=== PATIENT | male | born 1950 | race Caucasian/White ===

== ENCOUNTER 2021-12-19 10:08 | Emergency (ER) | payer MEDICARE, SELFPAY ==
--- NOTE | ~2021-12-19 | CT_ITS ---
EXAMINATION: CT cervical spine wo con DATE: 12/19/2021 11:05 INDICATION: Head injury TECHNIQUE: Computed tomography (CT) of the cervical spine was performed without intravenous contrast. The dose-length product (DLP) was 505.50 mGy-cm. Automated exposure control and iterative reconstruc tion technique were employed. COMPARISON: None FINDINGS: There is no fracture. There are 2 mm of anterolisthesis of C3 on C4 and C4 on C5. There is severe loss of intervertebral disc space height at C6-7 and moderate loss of disc space height at C3- 4 through C5-6. There is severe central canal stenosis at C5-6 and C6-7. There is severe multilevel f acet and uncovertebral joint osteoarthritis. IMPRESSION: 1. Severe cervical spondylosis without acute findings. Reviewed, dictated and finalized at location A.
--- NOTE | ~2021-12-19 | CT_ITS ---
EXAMINATION: CT brain wo con INDICATION: Head injury COMPARISON: None TECHNIQUE: Standard unenhanced head CT. The dose-length product (DLP) was 681.00 mGy-cm. The mA was a djusted according to patient size. Iterative reconstruction technique was employed. FINDINGS: There is a left parietal scalp hematoma and laceration. There is no acute intraparenchymal hemorrhage. No evidence of mass lesion. No evidence of acute infarction. There is mild periventricula r and subcortical hypodensity probably related to small vessel ischemic disease. There is moderate pr ominence of the sulci and ventricles related to cerebral atrophy. Intracranial calcified cerebral ath erosclerosis is noted. There are no extra-axial collections. There is no mass effect or midline shift . Changes in the globes are likely from ocular lens surgery. The visualized sinuses and mastoid air c ells are well aerated. IMPRESSION: 1. No acute intracranial abnormality. 2. Age related findings. Reviewed, dictated and finalized at location A.
[2021-12-19 10:16] VITALS: BP 109/97; PULSE 79; RESP 18; TEMP 36.5; O2SAT 99
--- NOTE | 2021-12-19 10:52 | ED.HEATRA ---
HPI - Head Injury General Chief complaint: Head Injury <Emma Sutherland PA-C - Last Filed: 12/19/21 13:16> Stated complaint: fall/hi/no thinners <Emma Sutherland PA-C - Last Filed: 12/19/21 13:16> Time Seen by Provider: 12/19/21 10:28 <Emma Sutherland PA-C - Last Filed: 12/19/21 13:16> History of Present Illness HPI Narrative: Patient is a 71 year old male who presents for evaluation s/p fall earlier today. Patient states he woke up in his usual state of health with some chronic back pain, for which he took Vicodin. States later in the day he was getting items out of his trunk, and when he stepped back he tripped and fell, striking his head on the pavement. No LOC. He required assistance from his daughter to get up from the ground. Patient is currently complaining of an abrasion to the back of his head and a mild headache, but no diplopia, chest pain, shortness of breath, abdominal pain, confusion, now or at time of fall. Had a stress test in late November due to some chest pain, which was WNL. He denies any chest pain today. Unsure of last tetanus. <Emma Sutherland PA-C - Last Filed: 12/19/21 13:16> Related Data Allergies/Adverse reactions: Allergies Allergy/AdvReac Type Severity Reaction Status Date / Time No Known Allergies Allergy Verified 12/19/21 10:21 <Emma Sutherland PA-C - Last Filed: 12/19/21 13:16> Review of Systems Review of Systems: Gen.: Denies fevers or chills Eyes: Denies eye pain or visual change ENT: Denies congestion Respiratory: Denies shortness of breath or cough CV: Denies chest pain or palpitations GI: Denies abdominal pain nausea, emesis or diarrhea denies burning, urgency, frequency or hematuria Musculoskeletal: Denies back pain or muscle pain Neuro: Denies numbness, tingling, weakness or focal weakness Skin: Reports abrasion to scalp. denies rash Except as documented, all other systems reviewed and negative <Emma Sutherland PA-C - Last Filed: 12/19/21 13:16> All systems reviewed & are unremarkable except as noted in HPI and below <Emma Sutherland PA-C - Last Filed: 12/19/21 13:16> [facility] Family History Family History: Family History (Updated 07/20/17 @ 08:15 by DOCTOR UNKNOWN) Father Diabetes mellitus Family history of malignant neoplasm of thyroid <Emma Sutherland PA-C - Last Filed: 12/19/21 13:16> Social History Social History: Social History Smoking status: Never smoker Alcohol intake: current <DELIA Matthews Last Filed: 12/19/21 13:16> Exam Const: General: no acute distress and alert; No confusion <Emma Sutherland PA-C - Last Filed: 12/19/21 13:16> Orientation/consciousness: patient oriented x3 <DELIA Matthews Last Filed: 12/19/21 13:16> Limitations: No altered mental status <Emma Sutherland PA-C - Last Filed: 12/19/21 13:16> HENMT: Mouth: Yes moist mucous membranes <DELIA Matthews Last Filed: 12/19/21 13:16> Throat: posterior oropharynx normal <DELIA Matthews Last Filed: 12/19/21 13:16> Other: Patient has area of healing ecchymosis under bilateral eyes. Small abrasion noted to posterior scalp with no active bleeding. No hemotympanum <Emma Sutherland PA-C - Last Filed: 12/19/21 13:16> Eyes: Conjunctivae: conjunctivae normal <DELIA Matthews Last Filed: 12/19/21 13:16> Pupils: Equal, round and reactive pupils present <DELIA Matthews Last Filed: 12/19/21 13:16> EOM: EOMs intact bilaterally <DELIA Matthews Last Filed: 12/19/21 13:16> Direct Ophthalmoscopy: no photophobia <DELIA Matthews Filed: 12/19/21 13:16> Neck: Neck: normal visual inspection <DELIA Matthews Filed: 12/19/21 13:16> Chest: Chest palpation & inspection: normal inspection of the chest and no tenderness <DELIA Matthews
[2021-12-19] MEDS: TETANUS,DIPHTHERIA,AC PERTUSSIS ADULT (0.5 ML) BOOSTRIX IM (11:34)
== END 2021-12-19 12:09 | disposition home or self-care (01) ==
PROVIDERS: Emergency Provider Emergency Medicine; PCP Family Medicine Adolescent Medicine
DX: S00.01XA Abrasion of scalp, initial encounter (principal); Z23 Encounter for immunization; M47.812 Spondylosis without myelopathy or radiculopathy, cervical region; W01.0XXA Fall on same level from slipping, tripping and stumbling without subsequent striking against object, initial encounter
CPT/HCPCS: 70450; 72125; 90471; 90715; 99284

== ENCOUNTER 2022-02-09 08:19 | Outpatient (CLI) | payer MEDICARE, SELFPAY ==
--- NOTE | ~2022-02-09 | CT_ITS ---
EXAMINATION:CT diagnostic chest wo con DATE: 02/09/2022 09:01 INDICATION: Solitary pulmonary nodule. TECHNIQUE: Computed tomography (CT) of the chest was performed without intravenous contrast. Automate d exposure control and iterative reconstruction technique were employed. The dose-length product (DLP ) was 371.82 mGy-cm. COMPARISON: CT abdomen and pelvis 04/06/2017 FINDINGS: The lungs demonstrate mild atelectasis. A calcified left lung nodule and calcified left hil ar lymph nodes are consistent with old granulomatous disease. No pleural effusion. The heart size is normal. There are coronary artery calcifications. No pericardial effusion. The central pulmonary nola rosa are enlarged, consistent with pulmonary arterial hypertension. Calcifications in the spleen are consistent with old granulomatous disease. There is severe thoracic spondylosis. IMPRESSION: 1. No evidence of malignancy. Reviewed, dictated and finalized at location A.
== END 2022-02-09 08:20 | disposition home or self-care (01) ==
PROVIDERS: PCP Family Medicine Adolescent Medicine; Visit Provider Family Medicine Adolescent Medicine
DX: R91.1 Solitary pulmonary nodule (principal)
CPT/HCPCS: 71250

== ENCOUNTER 2023-04-13 02:54 | Day surgery (SDC) | payer MEDICARE, SELFPAY ==
[2023-03-14 13:51] VITALS: BMI 40.9
--- NOTE | 2023-04-12 13:38 | WPDANESEPPF ---
Anes - Initial Pre Proc Eval Procedure: Operation Date: 04/13/23 13:00 Proposed Procedures p Screening Colonoscopy - Patricio Lambert MD Date/Time: 04/12/23 13:38 Surgeon: Patricio Lambert MD Pre Op Diagnosis: neoplasm screening Patient Data Age: 73 Gender: M Height: 1.78 m Weight: 129.5 kg Allergies Allergy/AdvReac Type Severity Reaction Status Date / Time No Known Allergies Allergy Verified 04/13/23 11:45 Home Medications Medication Instructions Recorded Confirmed Type antiarthritic combination no.2 900 900 mg PO DAILY 12/31/21 04/13/23 History mg tablet (glucosamine-chondroitin) cholecalciferol (vitamin D3) 125 125 mcg PO DAILY 12/31/21 04/13/23 History mcg (5,000 unit) tablet omeprazole 20 mg capsule,delayed 20 mg PO DAILY 12/31/21 04/13/23 History release oxycodone-acetaminophen 10 mg-325 1 - 2 tablet PO Q6H PRN Pain 12/31/21 04/13/23 History mg tablet (Percocet) testosterone cypionate 200 mg/mL 200 mg IM .every 3 weeks #10 mL 03/11/22 04/13/23 Rx intramuscular oil amlodipine 5 mg tablet 5 mg PO DAILY #90 tabs 03/04/23 04/13/23 Rx furosemide 40 mg tablet 40 mg PO QAM 03/04/23 04/13/23 History hydrocodone 5 mg-acetaminophen 325 1 tablet PO Q6H PRN Pain 03/04/23 04/13/23 History mg tablet losartan 100 mg tablet 100 mg PO DAILY #90 tabs 03/04/23 04/13/23 Rx oxybutynin chloride 10 mg 10 mg PO DAILY #90 tabs 03/04/23 04/13/23 Rx tablet,extended release 24 hr diclofenac sodium 75 mg 75 mg PO BID 03/14/23 04/13/23 History tablet,delayed release gabapentin 600 mg tablet 600 mg PO TID 03/14/23 04/13/23 History magnesium 1 cap PO DAILY 03/14/23 04/13/23 History tamsulosin 0.4 mg capsule 0.8 mg PO HS 03/14/23 04/13/23 History trazodone 150 mg tablet 300 mg PO HS 03/14/23 04/13/23 History amoxicillin 875 mg-potassium 1 tablet PO BID #20 tabs 04/08/23 04/13/23 Rx clavulanate 125 mg tablet Patient hx anesthesia problems: none Family hx anesthesia problems: none Results Review: All pre-operative results and documents have been reviewed as part of the pre-operative evaluation. [facility] Surgical History Surgical History History of appendectomy 06/2017 History of back surgery History of bilateral inguinal hernia repair History of bilateral knee arthroplasty 2004 History of total left hip replacement 08/2018 History of umbilical hernia repair Family History Family History Father Family history of malignant neoplasm of thyroid Asthma Hypertension Mother Breast cancer Hypertension Social History Social History Smoking status: Never smoker Second hand tobacco smoke exposure: No Alcohol intake: current Substance use: never Substance use type: does not use Living arrangements: with family Occupation/Education: retired Gender identity (if verbalized by the patient): Male Sexual Orientation (if Verbalized by the Patient): Straight or Heterosexual Spiritual care concerns: No Agree to blood products: Yes Anes - Eval Final PreProcedure Day of Procedure 04/12/23 13:38 Patient weight: morbidly obese Heart: irregular rhythm Lungs: clear to auscultation Airway: Mallampati scale class II Neurological: alert and oriented Last oral intake: >/= 8 hours ASA classification: III Emergent: no Anesthetic plan: proceed Anesthesia type and monitoring: general GIVS and standard monitoring Results Review: All pre-operative results and documents have been reviewed as part of the pre-operative evaluation. Informed Consent: The patient's anesthetic plan and its attendant risks and benefits were discussed with the patient/family/POA. Questions were solicited and answers provided to the satisfaction of the patient/family/POA.
--- NOTE | 2023-04-12 20:36 | PM.HPGS ---
History of Present Illness History of Present Illness Consent: Risks, benefits, and alternatives have been discussed and questions answered. Patient agrees to proceed with procedure. Chief complaint: neoplasm screening Narrative: Jeremie Delaney is a 73 year old male referred for colon cancer screening. Review of Systems Review of Systems: All systems reviewed & are unremarkable except as noted in HPI and below PMFSH Surgical History Surgical History History of appendectomy 06/2017 History of back surgery History of bilateral inguinal hernia repair History of bilateral knee arthroplasty 2004 History of total left hip replacement 08/2018 History of umbilical hernia repair Family History Family History Father Family history of malignant neoplasm of thyroid Asthma Hypertension Mother Breast cancer Hypertension Social History Social History Smoking status: Never smoker Second hand tobacco smoke exposure: No Alcohol intake: current Substance use: never Substance use type: does not use Living arrangements: with family Occupation/Education: retired Gender identity (if verbalized by the patient): Male Sexual Orientation (if Verbalized by the Patient): Straight or Heterosexual Spiritual care concerns: No Agree to blood products: Yes Meds Home Medications and Allergies Home Medications Medication Instructions Recorded Confirmed Type antiarthritic combination no.2 900 900 mg PO DAILY 12/31/21 04/13/23 History mg tablet (glucosamine-chondroitin) cholecalciferol (vitamin D3) 125 125 mcg PO DAILY 12/31/21 04/13/23 History mcg (5,000 unit) tablet omeprazole 20 mg capsule,delayed 20 mg PO DAILY 12/31/21 04/13/23 History release oxycodone-acetaminophen 10 mg-325 1 - 2 tablet PO Q6H PRN Pain 12/31/21 04/13/23 History mg tablet (Percocet) testosterone cypionate 200 mg/mL 200 mg IM .every 3 weeks #10 mL 03/11/22 04/13/23 Rx intramuscular oil amlodipine 5 mg tablet 5 mg PO DAILY #90 tabs 03/04/23 04/13/23 Rx furosemide 40 mg tablet 40 mg PO QAM 03/04/23 04/13/23 History hydrocodone 5 mg-acetaminophen 325 1 tablet PO Q6H PRN Pain 03/04/23 04/13/23 History mg tablet losartan 100 mg tablet 100 mg PO DAILY #90 tabs 03/04/23 04/13/23 Rx oxybutynin chloride 10 mg 10 mg PO DAILY #90 tabs 03/04/23 04/13/23 Rx tablet,extended release 24 hr diclofenac sodium 75 mg 75 mg PO BID 03/14/23 04/13/23 History tablet,delayed release gabapentin 600 mg tablet 600 mg PO TID 03/14/23 04/13/23 History magnesium 1 cap PO DAILY 03/14/23 04/13/23 History tamsulosin 0.4 mg capsule 0.8 mg PO HS 03/14/23 04/13/23 History trazodone 150 mg tablet 300 mg PO HS 03/14/23 04/13/23 History amoxicillin 875 mg-potassium 1 tablet PO BID #20 tabs 04/08/23 04/13/23 Rx clavulanate 125 mg tablet Allergies Allergy/AdvReac Type Severity Reaction Status Date / Time No Known Allergies Allergy Verified 04/13/23 11:45 Exam Resp: Auscultation: clear to auscultation bilaterally Cardio: Rate: regular rate Rhythm: regular rhythm GI: GI Palp: Yes Soft to palpation and No Tenderness to palpation present (GI) Assessment and Plan Assessment and plan (1) Colon cancer screening: Code(s): Z12.11 - Encounter for screening for malignant neoplasm of colon Status: Acute Assessment and Plan: Colonoscopy with possible biopsy or polypectomy or cautery or injection of substances.
[2023-04-13 11:48] VITALS: BP 158/84; PULSE 82; RESP 18; TEMP 36.2; O2SAT 96; BMI 41.3
[2023-04-13] MEDS: LACTATED RINGERS 1,000 ML 150 ML IV CONT (12:03)
[2023-04-13 13:24] VITALS: BP 130/88; PULSE 68; RESP 18; O2SAT 95
[2023-04-13 13:34] VITALS: BP 141/98; PULSE 66; RESP 18; O2SAT 96
[2023-04-13 13:44] VITALS: BP 142/89; PULSE 68; RESP 18; O2SAT 97
== END 2023-04-13 13:59 | disposition home or self-care (01) ==
PROVIDERS: PCP Family Medicine Adolescent Medicine; Visit Provider Internal Medicine Gastroenterology
PROC: 0DJD8ZZ Inspection of Lower Intestinal Tract, Via Natural or Artificial Opening Endoscopic (ICD-10-PCS; CPT 45378; principal; 2023-04-13 13:00)
DX: Z12.11 Encounter for screening for malignant neoplasm of colon (principal); K57.30 Diverticulosis of large intestine without perforation or abscess without bleeding; E66.01 Morbid (severe) obesity due to excess calories; Z68.41 Body mass index [BMI] 40.0-44.9, adult
CPT/HCPCS: G0121; J2704; J7120

== ENCOUNTER 2024-01-10 18:36 | Inpatient (IN) | payer MEDICARE, SELFPAY ==
--- NOTE | ~2024-01-10 | US_ITS ---
EXAMINATION:US venous doppler LE BI INDICATION:Edema. Hypoxia. TECHNIQUE: Multiple grayscale, color flow and Doppler images of the right and left lower extremity de ep venous systems were obtained and reviewed. COMPARISON: No prior studies for comparison. FINDINGS: The common femoral, superficial femoral and popliteal veins demonstrate normal respiratory variation, augmentation and compressibility. Color flow is also seen within the posterior tibial, pe roneal, greater saphenous and profunda veins. IMPRESSION: 1: No lower extremity deep venous thrombosis. Reviewed, dictated and finalized at location B.
--- NOTE | ~2024-01-10 | XR_ITS ---
EXAM: XR knee LT 3V DATE: 01/10/2024 21:13 HISTORY: fall, pain . COMPARISON: None available. FINDINGS: Decreased mineralization. No fracture or dislocation. Uncomplicated appearing left knee ar throplasty hardware. No lytic or blastic lesion. Patellar and quadriceps enthesopathy. No erosion or periosteal change. Moderate volume joint fluid. IMPRESSION: No acute osseous finding in the left knee. No radiographic evidence of hardware related c omplication. Moderate joint effusion. Reviewed, dictated and finalized at location K. IMPRESSION: No acute osseous finding in the left knee. No radiographic evidence of hardware related complication. Moderate joint effusion.
--- NOTE | ~2024-01-10 | XR_ITS ---
EXAMINATION: XR chest 1V Exam Date/Time: 01/10/2024 21:00 CDT HISTORY: sob Comparison: 06/05/2019. RESULT: Lines, tubes, and devices: Shunt tubing traverses the right chest. Lungs and pleura: Low volumes with crowding. Azygos fissure. Linear bilateral scar/atelectasis in th e mid and lower lungs. Patchy subsegmental bilateral medial basilar airspace disease. Cardiomediastinal silhouette: Stable. Other: No acute osseous or upper abdominal finding. IMPRESSION: Low volumes with crowding. Subsegmental bibasilar medial atelectasis/consolidation. Bilateral lower l sisi atelectasis/scar. Reviewed, dictated and finalized at location K. IMPRESSION: Low volumes with crowding. Subsegmental bibasilar medial atelectasis/consolidat ion. Bilateral lower lung atelectasis/scar.
--- NOTE | ~2024-01-10 | XR_ITS ---
EXAM: XR foot LT 2V DATE: 01/10/2024 23:44 HISTORY: fall pain base of toes unable to bend knee . COMPARISON: None available. FINDINGS: Decreased mineralization. Avulsion fracture fragment off the dorsal aspect of the talus. N ondisplaced transverse fracture of the proximal aspect of the fifth proximal phalange. Transverse fra cture of the fifth metatarsal head with medial angulation. No lytic or blastic lesion. Scattered dege nerative changes, moderate at the midfoot where erosive changes are present. Plantar enthesopathy and calcification of the plantar fascia. No erosion or periosteal change. Vascular calcifications. Foref oot soft tissue swelling. IMPRESSION: Anterior ankle capsule avulsion fracture. Nondisplaced fracture of the proximal aspect of the left fifth proximal phalange. Left fifth metatarsal head fracture with medial angulation. Reviewed, dictated and finalized at location K.
--- NOTE | ~2024-01-10 | XR_ITS ---
Portable chest x-ray Comparison: 01/10/2024 Clinical History: Pneumonia Findings: There is a probable linear bibasilar scarring are present, with suspected underlying COPD. No acute consolidation or pleural effusion. MILK [employer]NER shunt present. Cardiomediastinal silhouette is stabl e. Bones and soft tissues are unremarkable. Impression: No definite acute pulmonary abnormality. Stable bibasilar scarring and probable underlying COPD. MILK [employer]NER shunt. Reviewed, dictated and finalized at location . Impression: No definite acute pulmonary abnormality. Stable bibasilar scarring and probable underlying COPD. MIL[employer]NER shunt.
[2024-01-10 18:40] VITALS: BP 134/116; PULSE 117; RESP 22; O2SAT 88
[2024-01-10 18:49] VITALS: O2SAT 93
[2024-01-10 19:07] VITALS: BP 162/93; PULSE 102; RESP 25; O2SAT 95
--- NOTE | 2024-01-10 19:17 | PC.NURSE ---
care and report given to ZAIRA Trinh. all questions answered.
[2024-01-10 20:55] VITALS: BP 167/84; PULSE 93; RESP 14; O2SAT 95
[2024-01-10 22:24] VITALS: BP 155/72; PULSE 98; RESP 20; O2SAT 95
[2024-01-10 23:20] VITALS: BP 157/99; PULSE 95; RESP 19; O2SAT 93
[2024-01-10 23:21] LABS: Basophils Percent Auto 0.3 % (0.2-1.2); Eosinophils Absolute Auto 0.2 K/mm3 (0-0.3); Eosinophils Percent Auto 1.5 % (0-4.4); Hematocrit 40.3 % (42.0-52.0); Hemoglobin 12.9 g/dL (14.0-18.0); Immature Granulocyte Absolute 0.04 K/mm3 (0.00-0.031); Immature Granulocyte Percent A 0.3 % (0-0.5); Lymphocytes Absolute Auto 2.24 K/mm3 (0.9-3.2); Lymphocytes Percent Auto 18.6 % (18.3-44.2); Mean Corpuscular Hemoglobin 31.5 pg (26-34); Mean Corpuscular Volume 98.5 fl (80-100); Mean Platelet Volume 8.9 fl (7.4-10.4); Monocytes Absolute Auto 0.8 K/mm3 (0.1-0.6); Monocytes Percent Auto 6.5 % (2.6-8.5); Neutrophils Absolute Auto 8.8 K/mm3 (1.3-6.7); Neutrophils Percent Auto 72.8 % (45.5-73.1); Platelet Count Result 229 k/mm3 (150-375); Red Blood Count 4.09 M/mm3 (4.6-6.20); Red Cell Distribution Width 16.9 % (11.5-14.5)
[2024-01-10] MEDS: AZITHROMYCIN 500 MG/NS 250 ML 500 MG/250 ML BAG 250 MG IVPB (23:24)
[2024-01-10 23:30] LABS: Lactic Acid Reflex 1.6 mmol/L (0.7-2.0)
[2024-01-10 23:32] LABS: Alanine Aminotransferase 19 U/L (6-50); Albumin Level 3.5 g/dL (3.5-5.1); Alkaline Phosphatase 89 U/L (38-126); Anion Gap 3 mmol/L (4-12); Aspartate Amino Transferase 22 U/L (17-59); Bilirubin,Total 0.3 mg/dL (0.2-1.3); Blood Urea Nitrogen 23 mg/dL (9-20); Calcium 9.1 mg/dL (8.4-10.2); Carbon Dioxide 31 mmol/L (22-30); Chloride 105 mmol/L (98-107); Estimated CRCL calculation 78 ml/min; Estimated Glomerular Filt Rate > 60; Glucose 128 mg/dL (65-110); Magnesium 2.2 mg/dL (1.6-2.3); Potassium 3.8 mmol/L (3.4-5.0); Sodium 139 mmol/L (137-145)
[2024-01-10] MEDS: KETOROLAC 15 MG/ML VIAL (*BKC) IV PUSH (23:33)
[2024-01-11] VITALS (13 sets, daily range): BP systolic 141–177; BP diastolic 86–105; PULSE 70–94; RESP 12–23; TEMP 36.2–36.6; O2SAT 91–95; BMI 47.5
--- NOTE | 2024-01-11 01:08 | ED.FALL ---
HPI - Fall General Chief Complaint: Fall Stated Complaint: fall Time Seen by Provider: 01/10/24 21:04 History of Present Illness HPI Narrative: Patient is a 73-year-old male who presents to the emergency department this evening after which occurred at a local strong. Patient states that he was trying to get out of a seated position and slid onto the ground. When this happen, patient's left leg slid underneath him and he landed on his left. Patient is now complaining of left knee pain and left foot pain. He denies hitting his head, denies any loss of consciousness and denies any blood thinner use. Patient was brought to our facility via EMS and it was noted that patient's pulse ox was in the mid 80s. Patient denies any home oxygen use. He is currently denies any chest pain or shortness of breath and denies any fevers or chills at home. No other modifying, alleviating, or precipitating factors at this time. Related Data Home Medications Medication Instructions Recorded Confirmed antiarthritic combination no.2 900 900 mg PO DAILY 12/31/21 11/22/23 mg tablet (glucosamine-chondroitin) cholecalciferol (vitamin D3) 125 125 mcg PO DAILY 12/31/21 11/22/23 mcg (5,000 unit) tablet magnesium 1 cap PO DAILY 03/14/23 11/22/23 dexamethasone sodium phos (PF) 4 4 mg IM Q12H PRN adrenal crisis 11/22/23 11/22/23 mg/mL injection solution hydrocortisone 5 mg tablet 5 mg PO .COMPLEX 11/22/23 11/22/23 Allergies Allergy/AdvReac Type Severity Reaction Status Date / Time No Known Allergies Allergy Verified 01/10/24 23:24 Review of Systems Review of Systems: All systems are reviewed and are negative unless stated otherwise in the HPI. 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 normal pressure hydrocephalus Family History Family History Father Family history of malignant neoplasm of thyroid Asthma Hypertension Mother Breast cancer Hypertension Social History Social History Smoking status: Never smoker Second hand tobacco smoke exposure: No Alcohol intake: current Substance use: never Substance use type: does not use Living arrangements: with family Occupation/Education: retired Gender identity (if verbalized by the patient): Male Sexual Orientation (if Verbalized by the Patient): Straight or Heterosexual Spiritual care concerns: No Agree to blood products: Yes Exam Narrative: General: Alert, awake, afebrile, in no acute distress, obese. Cardiovascular: Regular rate and rhythm, no murmurs, rubs or gallops, no peripheral edema. Respiratory: Clear to auscultation bilaterally, no tachypnea, no wheezing, no rhonchi, no rubs, no respiratory distress. Abdomen: Soft, nontender, nondistended, no rebound, no guarding, no peritoneal signs. Musculoskeletal: Tenderness to palpation along the medial aspect of the left knee, intact left knee range of motion, no joint effusion noted, tenderness to palpation over the 4th and 5th distal metatarsal/phalanges of the left foot with overlying ecchymosis. Skin: No rashes or petechia, no signs of infection. Psychiatric: Alert and oriented, normal behavior and judgment for situation. Neurological: Alert and oriented to person, place, and time. Follows all commands. No focal deficits, speech is clear and fluent. Course Vital Signs Vital signs: Vital Signs Pulse Rate 117 H 01/10/24 18:40 Respiratory Rate 22 H 01/10/24 18:40 Blood Pressure 134/116 H 01/10/24 18:40 Pulse Oximetry 88 L 01/10/24 18:40 Oxygen Delivery Room Air 12/19
[2024-01-11] MEDS: HYDROcodone/acetaminophen (*CRX) 7.5-325 MG TABLET 1 TAB PO (01:40)
[2024-01-11] MEDS: HYDROmorphone HCL INJ (*CRX) 1 MG/ML SYR IV PUSH ×3 (06:00→21:28)
--- NOTE | 2024-01-11 11:51 | PM.IMHP ---
H&P: HPI History of Present Illness Date/Time: 01/11/24 11:51 Chief Complaint: Fall with left elg pain Narrative: 73yo male with Parkinson, CHF, adrenal insufficiency and HTN here for left ankle and knee pain after a fall. Patient tried to get up into his truck on the skidder driver's side when his left leg slipped out from under him causing a fall. He landed under his left leg. He denies any chest pain, lightheadedness or dizziness prior to the fall. There was no head injury or loss of consciousness. No neck injury. He denies any other joint pain except for left knee and left ankle/foot. He has been feeling well. No fever or chills. No cough. No calf pain. No history of sleep apnea, COPD, emphysema or asthma. He does measure his oxygen level at home and it runs in the low 90s. He has been short of breath with pedal edema over the past 6 months off and on. He has been hospitalized a couple times for CHF. He has been on Lasix anywhere from 40-60 mg daily. His Lasix was increased to 80 mg daily on 01/09/24. He also has been having intermittent back pain with right leg sciatica but this been going on for years. He does see orthopedic doctor, Dr Dickerson, in [place]. Patient takes gabapentin and diclofenac regularly at home for chronic pain. He also has Vicodin that he uses once a week on average as well. Family is concerned that the patient has had confusion after being given morphine and Percocet and request these not be given. EMS evaluated the patient and noted that the patient was hypoxic with SpO2 in the mid 80s. Patient was started on oxygen and brought to the emergency room for evaluation. He does not wear oxygen at home. In the emergency room, he was 88% on room air. Tachycardic 117 with a blood pressure 134/116. Chest x-ray showed low volume with crowding and subsegmental bibasilar medial atelectasis and consolidation as well as bilateral lower lung atelectasis scar. The x-ray showed no acute osseous abnormalities of the left knee. No radiographic evidence of hardware related complications. Does have a moderate joint effusion noted. Left foot x-ray shows anterior ankle capsule avulsion fracture involving the talus, nondisplaced fracture of the proximal aspect left 5th proximal phalanges and left 5th metatarsal head fracture with medial angulation. Blood cultures were collected. White count was 12 K. Hemoglobin was 13 with normal platelet count. Serum bicarb was 31, BUN 23 and glucose 128 otherwise comprehensive metabolic panel essentially normal. Patient was given Rocephin, azithromycin and 1 dose Toradol. He was also given Dilaudid and [place]. He was admitted for further care. Review of Systems Review of Systems: All systems reviewed & are unremarkable except as noted in HPI and below PMFSH Past Medical History Medical History (Updated 01/11/24 @ 12:14 by Chance Contreras MD) Adrenal insufficiency BPH (benign prostatic hyperplasia) CHF (congestive heart failure) HTN (hypertension), benign Parkinsons disease Surgical History Surgical History (Updated 01/11/24 @ 12:09 by Chance Contreras MD) History of appendectomy 06/2017 History of back surgery History of bilateral inguinal hernia repair History of bilateral knee arthroplasty 2004 History of fracture of right ankle surgical repair with hardware. 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 Denies alcohol or drug use. Lives at home with his . He has 2 dogs. Full code. He nominates his to be the individual who would make
[2024-01-11] MEDS: FUROSEMIDE 40 MG TABLET 80 MG PO (15:01)
[2024-01-11] MEDS: CARBIDOPA/LEVODOPA 25/100 MG TABLET 1 TABLET PO ×2 (15:01→17:23)
[2024-01-11] MEDS: GABAPENTIN 300 MG CAPSULE 600 MG PO ×2 (15:02→17:23)
[2024-01-11] MEDS: LOSARTAN POTASSIUM 100 MG TABLET PO (15:02)
[2024-01-11] MEDS: HYDROCORTISONE 5 MG TABLET 15 MG PO (15:10)
[2024-01-11 15:53] LABS: Influenza A QL RT-PCR Negative (Negative); Influenza B QL RT-PCR Negative (Negative); RSV RNA, RT-PCR Negative (Negative); SARS-CoV-2 RNA PCR Negative (Negative)
[2024-01-11] MEDS: DICLOFENAC SOD 75 MG TABLET.EC BY MOUTH (17:23)
[2024-01-11] MEDS: TAMSULOSIN HCL 0.4 MG CAPSULE 0.8 MG PO (21:22)
[2024-01-11] MEDS: HYDROCORTISONE 5 MG TABLET PO (21:22)
[2024-01-11] MEDS: AZITHROMYCIN 250 MG TABLET PO (21:22)
[2024-01-11] MEDS: traZODone HCL 50 MG TABLET 300 MG PO (21:22)
--- NOTE | 2024-01-11 21:56 | PCRCNOTE ---
PT REFUSES TO HAVE APNEA LINK STATES HE DOES NOT NEED OR WANT ONE
[2024-01-12 05:26] VITALS: BP 142/82; PULSE 85; RESP 14; TEMP 36.1; O2SAT 94
[2024-01-12 06:13] LABS: Basophils Percent Auto 0.4 % (0.2-1.2); Eosinophils Absolute Auto 0.2 K/mm3 (0-0.3); Eosinophils Percent Auto 2.2 % (0-4.4); Hematocrit 39.7 % (42.0-52.0); Hemoglobin 12.4 g/dL (14.0-18.0); Immature Granulocyte Absolute 0.05 K/mm3 (0.00-0.031); Immature Granulocyte Percent A 0.5 % (0-0.5); Lymphocytes Absolute Auto 1.93 K/mm3 (0.9-3.2); Lymphocytes Percent Auto 21.2 % (18.3-44.2); Mean Corpuscular HGB Conc 31.2 g/dl (32-36); Mean Corpuscular Hemoglobin 31.3 pg (26-34); Mean Corpuscular Volume 100.3 fl (80-100); Mean Platelet Volume 8.9 fl (7.4-10.4); Monocytes Absolute Auto 0.7 K/mm3 (0.1-0.6); Neutrophils Absolute Auto 6.2 K/mm3 (1.3-6.7); Neutrophils Percent Auto 67.7 % (45.5-73.1); Platelet Count Result 202 k/mm3 (150-375); Red Blood Count 3.96 M/mm3 (4.6-6.20); Red Cell Distribution Width 16.9 % (11.5-14.5); White Blood Count 9.1 K/mm3 (4.5-10.0)
[2024-01-12 06:22] LABS: Anion Gap -1 mmol/L (4-12); Blood Urea Nitrogen 18 mg/dL (9-20); Calcium 9.1 mg/dL (8.4-10.2); Carbon Dioxide 35 mmol/L (22-30); Chloride 101 mmol/L (98-107); Estimated CRCL calculation 87 ml/min; Estimated Glomerular Filt Rate > 60; Glucose 113 mg/dL (65-110); Magnesium 2.1 mg/dL (1.6-2.3); Potassium 4.3 mmol/L (3.4-5.0); Sodium 135 mmol/L (137-145)
[2024-01-12 08:00] VITALS: PULSE 85; RESP 14; O2SAT 94
[2024-01-12] MEDS: FUROSEMIDE 40 MG TABLET 80 MG PO (09:08)
[2024-01-12] MEDS: DICLOFENAC SOD 75 MG TABLET.EC BY MOUTH ×2 (09:08→17:46)
[2024-01-12] MEDS: CARBIDOPA/LEVODOPA 25/100 MG TABLET 1 TABLET PO ×3 (09:08→17:46)
[2024-01-12] MEDS: GABAPENTIN 300 MG CAPSULE 600 MG PO ×3 (09:08→17:46)
[2024-01-12] MEDS: MULTIVITAMINS THERAPEUTIC TAB (*BKC) 1 TABLET PO (09:09)
[2024-01-12] MEDS: CHOLECALCIFEROL 1,000 UNITS TABLET 5000 UNITS PO (09:09)
[2024-01-12] MEDS: HYDROCORTISONE 5 MG TABLET 15 MG PO (09:09)
[2024-01-12] MEDS: LOSARTAN POTASSIUM 100 MG TABLET PO (09:09)
[2024-01-12] MEDS: MAGNESIUM OXIDE 400 MG TABLET PO (09:11)
--- NOTE | 2024-01-12 10:29 | PCPTNOTE ---
Attempted PT evaluation, pt's spouse refused for pt to participate in skilled therapy until orthopedic doctor has seen the pt. Pt and pt's spouse educated on pt having a WBAT order that was written by orthopedic physician, but pt's spouse continued to refuse for the pt. RN aware.
[2024-01-12] MEDS: polyethylene glycoL 3350 17 GM POWD.PACK PO (12:07)
--- NOTE | 2024-01-12 12:47 | PM.CNOR ---
Assessment and Plan Assessment and plan (1) Foot fracture, left: Qualifiers: Encounter type: initial encounter Fracture type: closed Qualified Code(s): S92.902A - Unspecified fracture of left foot, initial encounter for closed fracture <MARLEN BrantleyP - Last Filed: 01/12/24 13:13> Code(s): S92.902A - Unspecified fracture of left foot, initial encounter for closed fracture <Paige BowersMARLENP - Last Filed: 01/12/24 13:13> Status: Acute <Paige BowersMARLENP - Last Filed: 01/12/24 13:13> Assessment and Plan: History, exam and radiographs reviewed with the patient. Radiographs of the left foot reveal a nondisplaced fracture of the proximal aspect of the left 5th proximal phalanges the and what appears to be an old healed fracture at the 5th metatarsal head. This appears to have callus formation around it consistent with healing. Suspect this is not a new fracture. There also appears to be arthritis throughout the midfoot and a possible anterior ankle capsule avulsion fracture. The fracture type and injury as well as radiographs discussed with the patient and family. Operative and nonoperative treatment options reviewed. Recommended non operative treatment. Risk of nonunion, malunion or late displacement discussed. Stiffness, pain and possible dysfunction of the joint discussed. Fracture precautions and activity restrictions reviewed. The patient verbalizes understanding. Splint may be removed. Patient may be fit with a CAM walker boot. WBAT with boot on. Ice. Elevate. Pain control. Will follow-up with patient in 4 weeks for repeat radiographs to evaluate healing and progress activity as tolerated. Thank you for allowing us to assist in the care this patient. <Paige BowersMARLENP - Last Filed: 01/12/24 13:13> History, exam and radiographs reviewed with the patient. Radiographs of the left foot reveal a nondisplaced fracture of the proximal aspect of the left 5th proximal phalanges the and what appears to be a fracture at the 5th metatarsal neck which may be subacute or healed. This appears to have callus formation around it consistent with healing. Suspect possibly not a new fracture. There also appears to be arthritis throughout the midfoot and a possible anterior talus capsule avulsion fracture. The fracture type and injury as well as radiographs discussed with the patient and family. Operative and nonoperative treatment options reviewed. Recommended non operative treatment. Risk of nonunion, malunion or late displacement discussed. Stiffness, pain and possible dysfunction of the joint discussed. Fracture precautions and activity restrictions reviewed. The patient verbalizes understanding. Splint may be removed. Patient may be fit with a CAM walker boot. WBAT with boot on. Ice. Elevate. Pain control. Will follow-up with patient in 4 weeks for repeat radiographs to evaluate healing and progress activity as tolerated. Thank you for allowing us to assist in the care this patient. <Tyson Villalta MD - Last Filed: 01/12/24 13:22> (2) History of total knee arthroplasty: Qualifiers: Laterality: left Qualified Code(s): Z96.652 - Presence of left artificial knee joint <LUIS Brantley - Last Filed: 01/12/24 13:13> Code(s): Z96.659 - Presence of unspecified artificial knee joint <LUIS Brantley - Last Filed: 01/12/24 13:13> Status: Acute <LUIS Brantley - Last Filed: 01/12/24 13:13> Assessment and Plan: Patient has a history of a left total knee arthroplasty by Dr. Dickerson in [place]. When he fell in his truck, he injured the left knee as well. He did not fall directly onto the knee. Radiographs left knee reveal a moderate knee joint effusion. No evidence of a periprosthetic fracture. Recommend patient begin physical therapy with weight-bearing as tolerated. Ice. Elevation. Pain control. No surgical indica
[2024-01-12 13:32] VITALS: BP 128/74; PULSE 91; RESP 18; TEMP 36.7; O2SAT 94
--- NOTE | 2024-01-12 14:27 | PC.NURSE ---
Attempting to order CAM boot ordered per Ortho. No answer at extension given in Surgery. Will attempt again later.
--- NOTE | 2024-01-12 16:20 | PM.IMPN ---
Progress Note: A&P Assessment and Plan (1) Foot fracture, left: Qualifiers: Encounter type: initial encounter Fracture type: closed Qualified Code(s): S92.902A - Unspecified fracture of left foot, initial encounter for closed fracture Code(s): S92.902A - Unspecified fracture of left foot, initial encounter for closed fracture Status: Acute Assessment and Plan: Patient presents after a fall and found to have multiple left foot and ankle fractures. He has been placed in a soft cast in the ED. Orthopedics consulted and appreciate their input. Pain control with Tylenol, [place], dilaudid. Avoid Percocet and morphine. PT and OT ordered Family has expressed concern about caring for the patient at home and SNF being arranged (2) Hypoxia: Code(s): R09.02 - Hypoxemia Status: Acute Assessment and Plan: Patient noted to be hypoxic in the field. Patient does not have this history of sleep apnea, COPD or asthma. Consider measurement error. He does have finding on chest x-ray with low volume and crowding as well as scarring and atelectasis. He does have patchy subsegmental bilateral airspace disease although does not have cough, fever to suggest PNA but WBC up slightly. He has more chronic SOB suspect related to CHF. Does not appear to have CHF exacerbation. Was weaned easily to room air in the ED prior to admission. COVID, influenza, RSV was negative. Bilateral LE venous dopplers negative for DVT. Repeat CXR showing no acute findings. Apnea link ordered. Stop Rocephin. Continue Azithro to complete a course. Follow. (3) Parkinsons disease: Code(s): G20.A1 - Parkinson's disease without dyskinesia, without mention of fluctuations Status: Acute Assessment and Plan: Stable. Continue Sinemet PT/OT (4) CHF (congestive heart failure): Code(s): I50.9 - Heart failure, unspecified Status: Acute Assessment and Plan: Patient has a history of CHF. He is on Lasix 80 mg daily which will resume. Does not appear to be acute CHF at this time. Follow. (5) Adrenal insufficiency: Code(s): E27.40 - Unspecified adrenocortical insufficiency Status: Acute Assessment and Plan: Patient with adrenal insufficiency. Blood pressures been stable since admission Continue hydrocortisone at home dose. He may need stress dose steroids if he needs surgical repair. (6) HTN (hypertension), benign: Code(s): I10 - Essential (primary) hypertension Status: Acute Assessment and Plan: As above. Blood pressure mildly elevated since admission. Probably related pain. BP better since starting losartan. Continue to follow. (7) BPH (benign prostatic hyperplasia): Code(s): N40.0 - Benign prostatic hyperplasia without lower urinary tract symptoms Status: Acute Assessment and Plan: Stable. Continue Flomax. Monitor for urine retention Plan DVT prophylaxis -Lovenox Code status -full Subjective Date/time seen: 01/12/24 16:20 Interval history: 73yo male with Parkinson, CHF, adrenal insufficiency and HTN here for left ankle and knee pain after a fall.?? Patient denies CP, SOB, cough. Eating okay. Having post-nasal drainage. Exam Narrative: AF 98.0 128/74 91 18 94% ra Gen - NARD Chest - CTA bilaterally. nml RR CV - RRR S1/S2 Abd - soft, obese, NT Ext - No pitting RLE edema. LLE in soft cast. Neuro - Nml movement of left toes. Normal sensation of left toes Psych - normal mood and affect. Skin - warm and dry. Objective Data Vital Signs Vital Signs: Vital Signs - 24 hr 01/11/24 21:45 01/11/24 22:00 01/12/24 05:26 Temperature 97.8 F 97.0 F L Pulse Rate 76 85 Respiratory Rate 13 14 Blood Pressure 150/90 H 142/82 H Pulse Oximetry 95 92 94 Oxygen Delivery Room Air 01/11/24 20:00 01/12/24 08:00 01/12/24 13:32 Temperature 98.0 F Pulse Rate 85 91 Respirator
[2024-01-12] MEDS: HYDROCORTISONE 5 MG TABLET PO (17:46)
[2024-01-12] MEDS: ENOXAPARIN 40 MG/0.4 ML SYRINGE SUB-Q (17:46)
[2024-01-12 20:00] VITALS: O2SAT 94
[2024-01-12 21:20] VITALS: BP 120/82; PULSE 87; RESP 12; TEMP 36.3; O2SAT 94
[2024-01-12] MEDS: TAMSULOSIN HCL 0.4 MG CAPSULE 0.8 MG PO (21:49)
[2024-01-12] MEDS: traZODone HCL 50 MG TABLET 300 MG PO (21:50)
[2024-01-12] MEDS: HYDROcodone/acetaminophen (*CRX) 5-325 MG TABLET 1 TAB PO (21:51)
[2024-01-12] MEDS: AZITHROMYCIN 250 MG TABLET PO (21:56)
[2024-01-13 05:59] VITALS: BP 131/87; PULSE 82; RESP 14; TEMP 36.4; O2SAT 92
[2024-01-13] MEDS: polyethylene glycoL 3350 17 GM POWD.PACK PO (08:40)
[2024-01-13] MEDS: FUROSEMIDE 40 MG TABLET 80 MG PO (08:41)
[2024-01-13] MEDS: GABAPENTIN 300 MG CAPSULE 600 MG PO ×2 (08:41→12:01)
[2024-01-13] MEDS: LOSARTAN POTASSIUM 100 MG TABLET PO (08:41)
[2024-01-13] MEDS: ENOXAPARIN 40 MG/0.4 ML SYRINGE SUB-Q (08:42)
[2024-01-13] MEDS: CARBIDOPA/LEVODOPA 25/100 MG TABLET 1 TABLET PO ×2 (08:42→12:02)
[2024-01-13] MEDS: CHOLECALCIFEROL 1,000 UNITS TABLET 5000 UNITS PO (08:42)
[2024-01-13] MEDS: DICLOFENAC SOD 75 MG TABLET.EC BY MOUTH (08:43)
[2024-01-13] MEDS: HYDROCORTISONE 5 MG TABLET 15 MG PO (08:43)
[2024-01-13] MEDS: MAGNESIUM OXIDE 400 MG TABLET PO (08:44)
[2024-01-13] MEDS: MULTIVITAMINS THERAPEUTIC TAB (*BKC) 1 TABLET PO (08:44)
--- NOTE | 2024-01-13 11:42 | PM.DS ---
DS: Admitting Diagnosis Discharge Date 01/13/24 Admitting Diagnosis Left foot pain after a fall DS: Discharge Diagnosis Discharge Diagnosis (1) Foot fracture, left: Qualifiers: Encounter type: initial encounter Fracture type: closed Qualified Code(s): S92.902A - Unspecified fracture of left foot, initial encounter for closed fracture Code(s): S92.902A - Unspecified fracture of left foot, initial encounter for closed fracture Status: Acute (2) Hypoxia: Code(s): R09.02 - Hypoxemia Status: Acute (3) Parkinsons disease: Code(s): G20.A1 - Parkinson's disease without dyskinesia, without mention of fluctuations Status: Acute (4) CHF (congestive heart failure): Code(s): I50.9 - Heart failure, unspecified Status: Acute (5) Adrenal insufficiency: Code(s): E27.40 - Unspecified adrenocortical insufficiency Status: Acute (6) HTN (hypertension), benign: Code(s): I10 - Essential (primary) hypertension Status: Acute (7) BPH (benign prostatic hyperplasia): Code(s): N40.0 - Benign prostatic hyperplasia without lower urinary tract symptoms Status: Acute DS: Summary Hospital Course Reason for hospitalization: 73yo male with Parkinson, CHF, adrenal insufficiency and HTN here for left ankle and knee pain after a fall.??Please see H&P for details. Hospital Course: Patient presented after a fall and found to have multiple left foot and ankle fractures.? Left knee x-ray showed no acute osseous abnormalities of the left knee.? No radiographic evidence of hardware related complications but does have a moderate joint effusion noted.? Left foot x-ray shows anterior ankle capsule avulsion fracture involving the talus, nondisplaced fracture of the proximal aspect left 5th proximal phalanges and left 5th metatarsal head fracture with medial angulation.??He was placed in a soft cast in the ED. Orthopedics consulted and appreciate their input. They recommende non-operative care. Pain control with Tylenol and narcotics. Patient noted to be hypoxic in the field.? Patient does not have this history of sleep apnea, COPD or asthma. Consider measurement error.? He does have finding on chest x-ray with low volume and crowding as well as scarring and atelectasis.? He does have patchy subsegmental bilateral airspace disease although does not have cough or fever to suggest PNA but WBC up slightly. He has more chronic SOB suspect related to CHF. Does not appear to have CHF exacerbation. He was weaned easily to room air in the ED prior to admission. BCx NGTD. COVID, influenza, RSV was negative. Bilateral LE venous dopplers negative for DVT. Repeat CXR showing no acute findings. Apnea link ordered but not completed. He was started on Rocephin and Azithro but narrowed to Azithromycin to complete a course. We continued a majority of his home medications. PT and OT ordered. Family expressed concern about caring for the patient at home and SNF was being arranged but he was doing well with therapy so plan now for discharge home. Patient overall did well and was able to be discharged home on 01/13/2024. Status at Discharge Cognitive/behavioral status at discharge: stable Time Spent with Patient Time attestation: Total time spent providing and/or coordinating discharge services: 35 minutes Time spent: Greater than 30 minutes Exam Narrative: AF 97.5 131/87 82 14 92% ra Gen - NARD lying flat in bed Chest - CTA bilaterally. nml RR CV - RRR S1/S2 Abd - soft, obese, NT Ext - No pitting edema. Left foot bruising noted Psych - normal mood and affect. Skin - warm and dry. DS: Data Data Completed and Pending Labs on day of discharge: Preliminary micro results at discharge 01/10/24 23:12 Blood Culture - Preliminary Blood 01/10/24 23:19 Blood Culture - Preliminary Blood Discharge Plan Discharge Attending physician on discharge: Diane
[2024-01-13 13:40] VITALS: BP 113/66; PULSE 94; RESP 17; TEMP 36.6; O2SAT 97
[2024-01-13 14:38] VITALS: BP 148/85
== END 2024-01-13 15:00 | disposition home or self-care (01) | DRG 563 ==
LOC: ANHED 01-11 01:19 → ANH3MEDSUR 01-11 02:38
PROVIDERS: Admitting Provider Internal Medicine; Emergency Provider Emergency Medicine; PCP Family Medicine Adolescent Medicine; Visit Provider Internal Medicine
DX: S92.152A Displaced avulsion fracture (chip fracture) of left talus, initial encounter for closed fracture (principal); E27.40 Unspecified adrenocortical insufficiency; S92.352A Displaced fracture of fifth metatarsal bone, left foot, initial encounter for closed fracture; S92.512A Displaced fracture of proximal phalanx of left lesser toe(s), initial encounter for closed fracture; S83.92XA Sprain of unspecified site of left knee, initial encounter; I11.0 Hypertensive heart disease with heart failure; I50.9 Heart failure, unspecified; G20.A1 Parkinson's disease without dyskinesia, without mention of fluctuations; N40.0 Benign prostatic hyperplasia without lower urinary tract symptoms; R09.02 Hypoxemia; W19.XXXA Unspecified fall, initial encounter; Z96.652 Presence of left artificial knee joint; Z96.642 Presence of left artificial hip joint; Z20.822 Contact with and (suspected) exposure to COVID-19; Z98.2 Presence of cerebrospinal fluid drainage device
CPT/HCPCS: 36415; 71045; 73562; 73620; 80048; 80053; 83605; 83735; 85025; 87040; 87637; 93970; 96365; 96367; 96375; 97161; 97165; 97535; 99285; A9270; J0456; J0696; J1170; J1650; J1885; L2116

== ENCOUNTER 2024-04-10 12:34 | Outpatient (CLI) | payer MEDICARE, SELFPAY ==
--- NOTE | 2024-04-11 20:29 | P.PCNPFT_ITS ---
PFT Procedure Performed PFT Procedure Performed Spirometry with Pre/Post Bronchodilator Plethysmography (Lung Vol) Diffusing Cap (DLCO) Flow Vol Loop PFT Interpretation DOS: 04/10/2024 REQUESTING: Teddy Garcia MD REASON FOR TESTING: shortness of breath PULMONARY FUNCTION TESTS Results are reliable and reproducible. Repeatability of spirometry FEV1 maneuver pre and post bronchodilator is Grade A. Spirometry: The pre-bronchodilator FEV1 is 2.16 L, 77%, normal. The pre- bronchodilator FVC is 2.73 L, 74%, normal.. The FEV1/FVC ratio is 79%, normal. After bronchodilator, the FEV1 is 2.19 L, 78%, +1%. The post-bronchodilator FVC is 2.67 L, 72%, -2%. The FEV1/FVC ratio is 82%, normal. Lung volumes: The total lung capacity is 5.83 L, 91%, normal. The residual volume is 2.91 L, 124%, normal. The RV/TLC is 50%, elevated, consistent with air trapping. Airway resistance is normal. Diffusion: DLCO is 18.8, 78%, normal. The DLCO/VA is 4.33, 108%, normal. Flow volume loop: The flow volume loop shows mild coving of the expiratory limb. IMPRESSION: This study shows normal spirometry, mild air trapping without hyperinflation and normal diffusion. No prior studies for comparison. Lack of response to bronchodilator should not preclude use if clinically indicated. Carlotta Mcfarland MD
== END 2024-04-10 12:35 | disposition home or self-care (01) ==
LOC: ANHPFT 12:35
PROVIDERS: PCP Family Medicine Adolescent Medicine; Visit Provider Family Medicine Adolescent Medicine
DX: R06.00 Dyspnea, unspecified (principal)
CPT/HCPCS: 94060; 94726; 94729

== ENCOUNTER 2024-05-18 01:13 | Day surgery (SDC) | payer MEDICARE, SELFPAY ==
[2024-05-07 09:18] VITALS: BMI 47.6
[2024-05-18] MEDS: LACTATED RINGERS 1,000 ML 150 ML IV CONT (07:58)
[2024-05-18 07:59] VITALS: BP 123/91; PULSE 87; RESP 22; TEMP 36.2; O2SAT 95
--- NOTE | 2024-05-18 08:55 | WPDANESEPPF ---
Anes - Initial Pre Proc Eval Procedure: Operation Date: 05/18/24 09:00 Proposed Procedures p Colonoscopy - Lobito Gonzalez MD Date/Time: 05/18/24 08:55 Surgeon: Lobito Gonzalez MD Pre Op Diagnosis: Diverticulosis Patient Data Age: 74 Gender: M Height: 1.7 m Weight: 137 kg Last Vital Signs Temp 97.1 F L 05/18/24 07:59 Pulse 87 05/18/24 07:59 Resp 22 H 05/18/24 07:59 BP 123/91 H 05/18/24 07:59 Pulse Ox 95 05/18/24 07:59 O2 Del Method Room Air 05/18/24 07:59 Allergies Allergy/AdvReac Type Severity Reaction Status Date / Time No Known Allergies Allergy Verified 05/18/24 07:38 Home Medications Medication Instructions Recorded Confirmed Type antiarthritic combination no.2 900 900 mg PO DAILY 12/31/21 05/18/24 History mg tablet (glucosamine-chondroitin) cholecalciferol (vitamin D3) 125 125 mcg PO DAILY 12/31/21 05/18/24 History mcg (5,000 unit) tablet magnesium 1 cap PO BID 03/14/23 05/18/24 History trazodone 150 mg tablet 300 mg PO HS #180 tabs 05/20/23 05/18/24 Rx gabapentin 600 mg tablet 600 mg PO TID #90 tabs 06/13/23 05/18/24 Rx carbidopa 25 mg-levodopa 100 mg 1 tablet PO TID #270 tabs 09/01/23 05/18/24 Rx tablet dexamethasone sodium phos (PF) 4 4 mg IM Q12H PRN adrenal crisis 11/22/23 05/18/24 History mg/mL injection solution hydrocortisone 5 mg tablet 5 mg PO .COMPLEX 11/22/23 05/18/24 History Centrum Men 1 tablet BYMOUTH DAILY 01/11/24 05/18/24 History acetaminophen 325 mg tablet 650 mg PO Q6H PRN Mild Pain (1-3) 01/13/24 05/18/24 Rx Or Fever #10 tabs diclofenac sodium 75 mg See Rx Instructions .Route 02/09/24 05/18/24 Rx tablet,delayed release .COMPLEX #180 tabs albuterol sulfate 90 mcg/actuation 1 inh inhalation Q4H PRN shortness 03/13/24 05/18/24 Rx aerosol inhaler of breath or wheezing #6.7 grams montelukast 10 mg tablet 10 mg PO QHS PRN allergic symptoms 03/13/24 05/18/24 Rx #90 tabs telmisartan 80 mg tablet 80 mg PO DAILY #90 tabs 03/13/24 05/18/24 Rx furosemide 80 mg tablet See Rx Instructions .Route 05/07/24 05/18/24 Rx .COMPLEX #90 tabs vibegron 75 mg tablet (Gemtesa) 75 mg PO DAILY 05/07/24 05/18/24 History tamsulosin 0.4 mg capsule See Rx Instructions .Route 05/16/24 05/18/24 Rx .COMPLEX #90 caps Patient hx anesthesia problems: none Family hx anesthesia problems: none Results Review: All pre-operative results and documents have been reviewed as part of the pre-operative evaluation. [facility] Past Medical History Medical History Adrenal insufficiency BPH (benign prostatic hyperplasia) CHF (congestive heart failure) HTN (hypertension), benign Parkinsons disease Surgical History Surgical History History of appendectomy 06/2017 History of back surgery History of bilateral inguinal hernia repair History of bilateral knee arthroplasty 2004 History of fracture of right ankle surgical repair with hardware. History of total knee arthroplasty History of total left hip replacement 08/2018 History of umbilical hernia repair S/P GI TECHNICIAN shunt 07/30/2024 for normal pressure hydrocephalus Family History Family History Father Family history of malignant neoplasm of thyroid Asthma Hypertension Mother Breast cancer Hypertension Social History Social History Social History: Lifelong nonsmoker. Denies alcohol or drug use. Lives at home with his . He has 2 dogs. Full code. He nominates his to be the individual who would make medical decisions for him if he is unable Smoking status: Never smoker Second hand tobacco smoke exposure: No Alcohol intake: current Substance use: never Substance use type: does not use Do You Feel Safe in your Home?: Yes Lack of T
--- NOTE | 2024-05-18 09:01 | PM.HPGS ---
History of Present Illness History of Present Illness Consent: Risks, benefits, and alternatives have been discussed and questions answered. Patient agrees to proceed with procedure. Chief complaint: colon screening Narrative: Jeremie Delaney is a 74 year old male here for colonoscopy, last year had poor prep Review of Systems Review of Systems: All systems reviewed & are unremarkable except as noted in HPI and below PMFSH Past Medical History Medical History Adrenal insufficiency BPH (benign prostatic hyperplasia) CHF (congestive heart failure) HTN (hypertension), benign Parkinsons disease Surgical History Surgical History History of appendectomy 06/2017 History of back surgery History of bilateral inguinal hernia repair History of bilateral knee arthroplasty 2004 History of fracture of right ankle surgical repair with hardware. 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 Denies alcohol or drug use. Lives at home with his . He has 2 dogs. Full code. He nominates his to be the individual who would make medical decisions for him if he is unable Smoking status: Never smoker Second hand tobacco smoke exposure: No Alcohol intake: current Substance use: never Substance use type: does not use Do You Feel Safe in your Home?: Yes Lack of Transportation: No Lack of Food: Never True Current Housing: I Have Housing Concerned About Future Housing: No Difficulty Paying Gas/Electric Bills: No Difficulty Paying for Meds: No Currently Unemployed: No Education: Associate Degree Difficulty w/ Childcare or Family Care: No Living arrangements: with family Occupation/Education: retired Gender identity (if verbalized by the patient): Male Sexual Orientation (if Verbalized by the Patient): Straight or Heterosexual Spiritual care concerns: No Agree to blood products: Yes Meds Home Medications and Allergies Home Medications Medication Instructions Recorded Confirmed Type antiarthritic combination no.2 900 900 mg PO DAILY 12/31/21 05/18/24 History mg tablet (glucosamine-chondroitin) cholecalciferol (vitamin D3) 125 125 mcg PO DAILY 12/31/21 05/18/24 History mcg (5,000 unit) tablet magnesium 1 cap PO BID 03/14/23 05/18/24 History trazodone 150 mg tablet 300 mg PO HS #180 tabs 05/20/23 05/18/24 Rx gabapentin 600 mg tablet 600 mg PO TID #90 tabs 06/13/23 05/18/24 Rx carbidopa 25 mg-levodopa 100 mg 1 tablet PO TID #270 tabs 09/01/23 05/18/24 Rx tablet dexamethasone sodium phos (PF) 4 4 mg IM Q12H PRN adrenal crisis 11/22/23 05/18/24 History mg/mL injection solution hydrocortisone 5 mg tablet 5 mg PO .COMPLEX 11/22/23 05/18/24 History Centrum Men 1 tablet BYMOUTH DAILY 01/11/24 05/18/24 History acetaminophen 325 mg tablet 650 mg PO Q6H PRN Mild Pain (1-3) 01/13/24 05/18/24 Rx Or Fever #10 tabs diclofenac sodium 75 mg See Rx Instructions .Route 02/09/24 05/18/24 Rx tablet,delayed release .COMPLEX #180 tabs albuterol sulfate 90 mcg/actuation 1 inh inhalation Q4H PRN shortness 03/13/24 05/18/24 Rx aerosol inhaler of breath or wheezing #6.7 grams montelukast 10 mg tablet 10 mg PO QHS PRN allergic symptoms 03/13/24 05/18/24 Rx #90 tabs telmisartan 80 mg tablet 80 mg PO DAILY #90 tabs 03/13/24 05/18/24 Rx furosemide 80 mg tablet See Rx Instructions .Route 05/07/24 05/18/24 Rx .COMPLEX #90
[2024-05-18 09:39] VITALS: BP 124/81; PULSE 87; RESP 20; O2SAT 93
[2024-05-18 09:49] VITALS: BP 125/81; PULSE 85; RESP 20; O2SAT 96
[2024-05-18 09:59] VITALS: BP 124/85; PULSE 82; RESP 20; O2SAT 100
== END 2024-05-18 10:10 | disposition home or self-care (01) ==
PROVIDERS: PCP Family Medicine Adolescent Medicine; Referring Provider Internal Medicine Gastroenterology; Visit Provider Internal Medicine Gastroenterology
PROC: 0DJD8ZZ Inspection of Lower Intestinal Tract, Via Natural or Artificial Opening Endoscopic (ICD-10-PCS; CPT 45378; principal; 2024-05-18 09:00)
DX: Z09 Encounter for follow-up examination after completed treatment for conditions other than malignant neoplasm (principal); K57.30 Diverticulosis of large intestine without perforation or abscess without bleeding; K64.8 Other hemorrhoids; I11.0 Hypertensive heart disease with heart failure; I50.9 Heart failure, unspecified; G20.A1 Parkinson's disease without dyskinesia, without mention of fluctuations; E27.40 Unspecified adrenocortical insufficiency; N40.0 Benign prostatic hyperplasia without lower urinary tract symptoms; G91.2 (Idiopathic) normal pressure hydrocephalus; Z98.2 Presence of cerebrospinal fluid drainage device; Z79.52 Long term (current) use of systemic steroids; Z79.51 Long term (current) use of inhaled steroids; E66.01 Morbid (severe) obesity due to excess calories; Z68.42 Body mass index [BMI] 45.0-49.9, adult
CPT/HCPCS: 45378; J2704; J7120

== ENCOUNTER 2024-10-02 11:10 | Outpatient (CLI) | payer MEDICARE, SELFPAY ==
--- NOTE | ~2024-10-02 | XR_ITS ---
XR shoulder RT min 2V Ordering provider: Princess Contreras APRN History: . S46.111A - Strain of other muscles, fascia and tendons at... . Comparison: None. FINDINGS: BONES: No acute fracture or dislocation. JOINT SPACES: The acromioclavicular joint is normal. The glenohumeral joint is normal. SOFT TISSUES: Normal. Right second digit tube is seen. IMPRESSION: No acute osseous abnormality right shoulder. Reviewed, dictated and finalized at location A. [facility]
== END 2024-10-02 11:11 | disposition home or self-care (01) ==
PROVIDERS: Visit Provider Nurse Practitioner Family
DX: S46.811A Strain of other muscles, fascia and tendons at shoulder and upper arm level, right arm, initial encounter (principal); X58.XXXA Exposure to other specified factors, initial encounter
CPT/HCPCS: 73030